=== PATIENT | female | born 1995 | race Caucasian/White ===

== ENCOUNTER 2019-09-12 17:20 | Emergency (ER) | payer OTHER ==
[~2019-09-12] VITALS: Ht 162.6 cm; Wt 68.2 kg
[2019-09-12 17:29] VITALS: BP 108/63
[2019-09-12] MEDS ORDERED: QUET25TA PO (17:35)
[2019-09-12] MEDS ORDERED: METF-960 PO (17:35)
[2019-09-12] MEDS ORDERED: ACETAMINOPHEN 500 MG TABLET PO ONE (18:00)
== END 2019-09-12 18:04 | disposition home or self-care (01) ==
LOC: EMS 17:21
DX: S01.512A Laceration without foreign body of oral cavity, initial encounter (principal); F41.9 Anxiety disorder, unspecified; E05.90 Thyrotoxicosis, unspecified without thyrotoxic crisis or storm; E11.9 Type 2 diabetes mellitus without complications; Z90.89 Acquired absence of other organs; Z79.84 Long term (current) use of oral hypoglycemic drugs; W45.8XXA Other foreign body or object entering through skin, initial encounter; Y93.89 Activity, other specified; Y92.89 Other specified places as the place of occurrence of the external cause; Y99.8 Other external cause status